=== PATIENT | male | born 1965 | race African-American/Black ===

== ENCOUNTER 2022-09-29 12:20 | Emergency (ER) | payer OTHER ==
[~2022-09-29] VITALS: Ht 193 cm; Wt 95.3 kg
[2022-09-29 12:23] VITALS: BP_SYST 165; PULSE 140; RESP 18; TEMP 97.9; O2SAT 97
[2022-09-29] MEDS ORDERED: DILTIAZEM HCL 60 MG TABLET PO ONE (12:45)
[2022-09-29] MEDS ORDERED: dilTIAZem HCL IVP 5 MG/ML VIAL IVP ONE ×2 (12:45→16:45)
[2022-09-29 13:09] VITALS: TEMP 98.3
[2022-09-29 13:11] LABS: BASOPHILS % (AUTO) 0.5 % (0.0-2.0); EOSINOPHILS % (AUTO) 0.6 % (0.0-4.0); HEMATOCRIT 43.1 % (36-54); HEMOGLOBIN 14.2 g/dL (14.0-18.0); LYMPHOCYTES # (AUTO) 1.7 K/uL (1.0-5.5); LYMPHOCYTES % (AUTO) 21.6 % (20.5-51.5); MEAN CORPUSCULAR HEMOGLOBIN 28 pg (27-31); MEAN CORPUSCULAR HGB CONC 33 % (32-36); MEAN CORPUSCULAR VOLUME 84 fL (79.0-98.0); MONOCYTES # (AUTO) 0.5 K/uL (0.0-1.0); MONOCYTES % (AUTO) 6.4 % (1.7-9.3); NEUTROPHILS # (AUTO) 5.6 K/uL (1.8-7.7); NEUTROPHILS % (AUTO) 70.9 % (40.0-70.0); RED BLOOD CELL COUNT(AUTO) 5.11 MIL/uL (4.2-6.2); RED CELL DISTRIBUTION WIDTH 15.4 % (9.0-15.0); WHITE BLOOD COUNT (AUTO) 7.8 K/uL (4.8-10.8)
[2022-09-29 13:45] LABS: ANION GAP 9 (5-15); CALCIUM 9.1 mg/dL (8.4-11.0); CARBON DIOXIDE 27 mmol/L (23-29); CHLORIDE 110 mmol/L (98-107); CREATININE 1.09 mg/dL (0.55-1.30); GFR AFRICAN AMERICAN 90 mL/min (>90); GLUCOSE 97 mg/dL (74-106); POTASSIUM 4.1 mmol/L (3.5-5.1); SODIUM SERUM 146 mmol/L (136-145); UREA NITROGEN, BLOOD 19 mg/dL (8-21)
[2022-09-29 13:48] LABS: GFR NON AFRICAN-AMERICAN 74 mL/min (>90)
[2022-09-29 13:50] LABS: ALANINE AMINOTRANSFERASE 21 U/L (12-78); ALBUMIN 3.8 g/dL (3.4-4.8); ASPARTATE AMINOTRANSFERASE 21 U/L (10-37); CREATINE KINASE, TOTAL 109 U/L (39-308); TOTAL BILIRUBIN 0.3 mg/dL (0.0-1.0); TOTAL PROTEIN, SERUM 6.9 g/dL (6.4-8.3)
[2022-09-29 13:57] LABS: INR 1.1 (0.80-1.20); PROTHROMBIN TIME 11.3 SECS (9.5-12.5)
[2022-09-29] MEDS ORDERED: dilTIAZem HCL IVP 5 MG/ML VIAL ONE (16:50)
[2022-09-29 17:06] VITALS: BP_SYST 138; PULSE 78; RESP 18; O2SAT 96
[2022-10-01 10:58] LABS: PLATELET COUNT (AUTO) 1845 K/uL (130-430)
== END 2022-09-29 17:09 | disposition short-term general hospital (02) ==
LOC: SED 12:20
DX: I48.20 Chronic atrial fibrillation, unspecified (principal); R00.2 Palpitations; Z79.899 Other long term (current) drug therapy
CPT/HCPCS: 99285; 96374; 71045; 80053; 82550; 83880; 85025; 85610; 85730; 84484; 36415; 93005; 96376; J3490